=== PATIENT | female | born 1965 | race African-American/Black ===

== ENCOUNTER 2018-12-10 16:33 | Emergency (ER) | payer MEDICAID, OTHER ==
[~2018-12-10] VITALS: Ht 165.1 cm; Wt 110.0 kg
[2018-12-10 16:44] VITALS: BP 128/68
== END 2018-12-10 18:09 | disposition home or self-care (01) ==
LOC: ER 16:33
DX: S40.021A Contusion of right upper arm, initial encounter (principal); W50.4XXA Accidental scratch by another person, initial encounter; Y93.F9 Activity, other caregiving; Y92.092 Bedroom in other non-institutional residence as the place of occurrence of the external cause; Y99.0 Civilian activity done for income or pay; Y92.10 Unspecified residential institution as the place of occurrence of the external cause
CPT/HCPCS: 99281

== ENCOUNTER 2019-09-16 08:45 | Emergency (ER) | payer MEDICAID ==
[~2019-09-16] VITALS: Ht 165.1 cm; Wt 100.0 kg
[2019-09-16 10:29] VITALS: BP 133/76
[2019-09-16] MEDS ORDERED: IBUPROFEN 800MG TABLET PO ONE (10:30)
== END 2019-09-16 11:31 | disposition home or self-care (01) ==
LOC: ER 08:45
DX: M25.562 Pain in left knee (principal); R03.0 Elevated blood-pressure reading, without diagnosis of hypertension; Z91.81 History of falling
CPT/HCPCS: 73562; 99283; L1830

== ENCOUNTER 2021-12-01 20:43 | Emergency (ER) | payer MEDICAID ==
[~2021-12-01] VITALS: Ht 162.6 cm; Wt 105.0 kg
[2021-12-01 22:37] LABS: BASOPHILS % 1.4 % (0.0-2.0); EOSINOPHILS % 1.6 % (0.0-5.0); HEMATOCRIT. 41.1 % (36.0-48.0); HEMOGLOBIN. 13.6 g/dL (12.0-16.0); LYMPHOCYTES % 41.1 % (20.0-50.0); MEAN CORPUSCULAR HEMOGLOBIN 30.6 pg (28.0-32.0); MEAN CORPUSCULAR VOLUME 92.3 fL (81.0-99.0); MONOCYTES % 6.3 % (2.0-8.0); NEUTROPHILS % 49.6 % (40.0-76.0); PLATELET 196 x1000/uL (130-400); RED BLOOD CELL COUNT 4.45 mill/uL (4.2-5.4); RED CELL DISTRIBUTION WIDTH 12.9 % (11.6-14.6)
[2021-12-01 22:44] LABS: CHLORIDE 102 mEq/L (98-107)
[2021-12-01 22:51] LABS: BETA HYDROXYBUTYRATE 0.1 mMol/L (0.0-0.3)
[2021-12-01] MEDS ORDERED: METF-874 MT (23:10)
[2021-12-01 23:30] VITALS: BP 122/60
== END 2021-12-01 23:46 | disposition home or self-care (01) ==
LOC: ER 20:43
DX: E11.65 Type 2 diabetes mellitus with hyperglycemia (principal); E78.00 Pure hypercholesterolemia, unspecified; Z90.49 Acquired absence of other specified parts of digestive tract; Z79.84 Long term (current) use of oral hypoglycemic drugs; Z90.710 Acquired absence of both cervix and uterus
CPT/HCPCS: 36415; 80053; 82010; 82962; 85025; 99283

== ENCOUNTER 2022-02-27 09:50 | Emergency (ER) | payer MEDICAID ==
[~2022-02-27] VITALS: Ht 162.6 cm; Wt 103.0 kg
[~2022-02-27 09:50] MED LIST: METF-874 MT
[2022-02-27] MEDS ORDERED: CYCLOBENZAPRINE 10MG TABLET PO ONE (11:00)
[2022-02-27] MEDS ORDERED: KETOROLAC 30MG/ML VIAL IM ONE (11:00)
[2022-02-27 11:08] VITALS: BP 132/79
[2022-02-27] MEDS ORDERED: NAPR-1176 MT (11:08)
[2022-02-27] MEDS ORDERED: CYCL10TA21 MT (11:08)
== END 2022-02-27 12:15 | disposition home or self-care (01) ==
LOC: ER 09:50
DX: S86.912A Strain of unspecified muscle(s) and tendon(s) at lower leg level, left leg, initial encounter (principal); E78.00 Pure hypercholesterolemia, unspecified; E11.9 Type 2 diabetes mellitus without complications; Z90.49 Acquired absence of other specified parts of digestive tract; X58.XXXA Exposure to other specified factors, initial encounter; Y93.89 Activity, other specified; Y92.89 Other specified places as the place of occurrence of the external cause; Y99.8 Other external cause status
CPT/HCPCS: 73552; 96372; 99283; J1885

== ENCOUNTER 2022-03-08 12:59 | Emergency (ER) | payer MEDICAID ==
[~2022-03-08] VITALS: Ht 167.6 cm; Wt 91.0 kg
[~2022-03-08 12:59] MED LIST changes: +CYCL10TA21 MT; +NAPR-1176 MT
[2022-03-08] MEDS ORDERED: ACET-2708 MT (16:35)
[2022-03-08 17:19] VITALS: BP 146/74
== END 2022-03-08 17:35 | disposition home or self-care (01) ==
LOC: ER 12:59
DX: S86.912A Strain of unspecified muscle(s) and tendon(s) at lower leg level, left leg, initial encounter (principal); E11.9 Type 2 diabetes mellitus without complications; E78.00 Pure hypercholesterolemia, unspecified; Z90.49 Acquired absence of other specified parts of digestive tract; X58.XXXA Exposure to other specified factors, initial encounter; Y93.89 Activity, other specified; Y92.89 Other specified places as the place of occurrence of the external cause; Y99.8 Other external cause status
CPT/HCPCS: 99282

== ENCOUNTER 2022-08-12 09:28 | Emergency (ER) | payer MEDICAID ==
[~2022-08-12] VITALS: Ht 170.2 cm; Wt 70.0 kg
[~2022-08-12 09:28] MED LIST changes: +ACET-2708 MT
[2022-08-12] MEDS ORDERED: HYDROCODONE/ACETAMINOPHEN 10/325MG TABLET PO ONE (10:30)
[2022-08-12] MEDS ORDERED: KETOROLAC 60MG/2ML VIAL IM ONE (10:30)
[2022-08-12 11:06] LABS: CLARITY URINE CLEAR (CLEAR); COLOR URINE YELLOW (YELLOW); KETONES URINE NEGATIVE (NEGATIVE); LEUKOCYTE ESTERASE URINE NEGATIVE (NEGATIVE); NITRITE URINE NEGATIVE (NEGATIVE); OCCULT BLOOD URINE NEGATIVE (NEGATIVE); PH URINE 5.5 (4.5-8.0); PROTEIN URINE NEGATIVE (NEGATIVE); SPECIFIC GRAVITY URINE 1.016 (1.005-1.030); UROBILINOGEN URINE 0.2 E.U./dL (0.2-1.0)
[2022-08-12] MEDS ORDERED: NAPR-1176 MT (13:32)
[2022-08-12] MEDS ORDERED: P50 MT (13:32)
[2022-08-12] MEDS ORDERED: ACET-2708 MT (13:32)
[2022-08-12] MEDS ORDERED: GABA-532 MT (13:32)
[2022-08-12 14:13] VITALS: BP 142/67
== END 2022-08-12 14:00 | disposition home or self-care (01) ==
LOC: ER 09:28
DX: M54.50 Low back pain, unspecified (principal); E78.00 Pure hypercholesterolemia, unspecified; E11.9 Type 2 diabetes mellitus without complications; Z90.49 Acquired absence of other specified parts of digestive tract
CPT/HCPCS: 72100; 81003; 96372; 99284; J1885

== ENCOUNTER 2023-06-29 12:06 | Emergency (ER) | payer MEDICAID ==
[~2023-06-29] VITALS: Ht 162.6 cm; Wt 99.0 kg
[~2023-06-29 12:06] MED LIST changes: +GABA-532 MT; +P50 MT
[2023-06-29 12:24] VITALS: O2SAT 100
[2023-06-29 13:03] LABS: DIFFERENTIAL COMMENT 0; EOSINOPHILS % 2.3 % (0.0-5.0); HEMATOCRIT. 43.2 % (36.0-48.0); HEMOGLOBIN. 14.9 g/dL (12.0-16.0); LYMPHOCYTES % 38.3 % (20.0-50.0); MEAN CORPUSCULAR HEMOGLOBIN 31.9 pg (28.0-32.0); MEAN CORPUSCULAR HGB CONC 34.4 g/dL (31.0-37.0); MEAN CORPUSCULAR VOLUME 92.6 fL (81.0-99.0); MEAN PLATELET VOLUME 9.8 fl (7.4-10.4); MONOCYTES % 6.4 % (2.0-8.0); PLATELET 249 x1000/uL (130-400); RED BLOOD CELL COUNT 4.66 mill/uL (4.2-5.4); RED CELL DISTRIBUTION WIDTH 13.1 % (11.6-14.6); WHITE BLOOD COUNT 6.6 x1000/uL (4.5-11.0)
[2023-06-29 13:29] LABS: ALANINE AMINOTRANSFERASE 25 IU/L (10-49); ALBUMIN 4.6 g/dL (3.2-4.8); ASPARTATE AMINOTRANSFERASE 24 IU/L (<34); BILIRUBIN TOTAL 0.8 mg/dL (0.1-1.0); CALCIUM 9.1 mg/dL (8.7-10.4); CARBON DIOXIDE 27 mEq/L (21-32); CHLORIDE 101 mEq/L (98-107); CREATININE 0.8 mg/dL (0.6-1.0); GLUCOSE 129 mg/dL (70-105); POTASSIUM 3.7 mEq/L (3.5-5.1); PROTEIN TOTAL 7.3 g/dL (6.0-8.3); SODIUM 137 mEq/L (136-145); UREA NITROGEN BLOOD 12 mg/dL (9-23)
[2023-06-29 13:30] LABS: TROPONIN I HIGH SENSITIVITY < 4 ng/L (3.0-34)
[2023-06-29] MEDS ORDERED: MECLIZINE 25MG TABLET PO ONE (16:15)
[2023-06-29] MEDS ORDERED: PREDNISONE 20MG TABLET PO ONE (16:15)
[2023-06-29] MEDS ORDERED: FLUT9.9S BOTHNSTRLS (16:47)
[2023-06-29] MEDS ORDERED: MECL-299 MT (16:47)
[2023-06-29] MEDS ORDERED: CLAR10 MT (16:47)
[2023-06-29] MEDS: MECLIZINE 12.5MG TABLET PO NR (17:00)
[2023-06-29] MEDS ORDERED: PREDNISONE 20MG TABLET PO NR (17:15)
[2023-06-29 17:28] VITALS: BP 127/64; PULSE 80; RESP 20; TEMP 98.3
== END 2023-06-29 17:43 | disposition home or self-care (01) ==
LOC: ER 12:06
DX: R42 Dizziness and giddiness (principal); E11.9 Type 2 diabetes mellitus without complications; E78.00 Pure hypercholesterolemia, unspecified; Z90.710 Acquired absence of both cervix and uterus; Z90.49 Acquired absence of other specified parts of digestive tract
CPT/HCPCS: 99285; 71045; 80053; 83880; 85025; 84484; 36415; 93005; J8597; J7512